=== PATIENT | male | born 1955 | race Caucasian/White ===

== ENCOUNTER 2020-04-06 07:00 | Outpatient (CLI) | payer OTHER, SELFPAY ==
--- NOTE | ~2020-04-06 | US_ITS ---
EXAMINATION: US aorta [facility] DATE: 04/06/2020 07:47 INDICATION: Encounter for screening for cardiovascular disorders, AAA screening, current smoker, hype rtension TECHNIQUE: Grayscale, color Doppler, and pulsed Doppler images of the aorta and common iliac arteries were obtained. COMPARISON: None. FINDINGS: Maximum vascular dimensions are as follows: Proximal aorta: 2.7 cm Mid aorta: 2.5 cm Distal aorta: 1.8 cm Right common iliac artery: 1.1 cm Left common iliac artery: 1.0 cm There is no evidence of abdominal aortic aneurysm. IMPRESSION: 1. No sonographic evidence of abdominal aortic aneurysm. Reviewed, dictated and finalized at location A. 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
--- NOTE | ~2020-04-06 | CT_ITS ---
EXAMINATION: CT lung screening EXAM DATE: 04/06/2020 07:37 INDICATION: Z12.2 - Encounter for screening for malignant neoplasm of respiratory organs. Personal hi story of nicotine dependence. TECHNIQUE: Spiral low dose CT of the chest without contrast. Axial, coronal and sagittal images were reviewed. The dose-length product (DLP) for this examination was 119.02 mGy-cm. The exposure was t ailored according to patient size (auto mA exposure control), and iterative reconstruction (ASIR) was used as additional dose reduction technique. Comparison is made to prior examination from 03/05/2007 . FINDINGS: There is 4 mm right upper lobe subsolid density nodule on axial image 29. There are other scattered smaller pulmonary nodules in the upper lobes. Mild diffuse bronchial wall thickening, could indicate chronic bronchitis. There is mild to moderate emphysema and moderate to severe hyperinflati on. Tracheobronchial tree is patent. There is no mediastinal, hilar or axillary lymphadenopathy. There are no pleural or pericardial effusions. There is no pneumothorax. Heart normal in size. There is moderate coronary arterial calcification, arterial sclerosis. There is 8 mm right superior calyceal stone. There is small sliding gastroesophageal hiatal hernia. There is thoracic spondylosi s without osteoblastic or osteolytic lesions identified. IMPRESSION: Lung-RADS category 2, benign appearance or behavior (<1% chance of malignancy); recommend continued LDCT screening in 1 year. Reviewed, dictated and finalized at location B. 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
== END 2020-04-06 07:01 | disposition home or self-care (01) ==
LOC: ANHIMG 07:06
PROVIDERS: PCP Family Medicine; Visit Provider Family Medicine
DX: Z12.2 Encounter for screening for malignant neoplasm of respiratory organs (principal); Z87.891 Personal history of nicotine dependence; Z13.6 Encounter for screening for cardiovascular disorders
CPT/HCPCS: 71271; 76706

== ENCOUNTER 2020-07-24 12:25 | Outpatient (CLI) | payer OTHER, SELFPAY ==
--- NOTE | ~2020-07-24 | XR_ITS ---
XR chest 2V DATE: 07/24/2020 12:46 INDICATION: Prostate cancer. No chest complaints. TECHNIQUE: PA and lateral views COMPARISON: 09/21/2018 2 view chest 04/06/2020 CT lung screening FINDINGS: Normal heart size. No hilar or mediastinal enlargement. Bilateral hyperinflation consistent with COPD. No pulmonary infiltrate or consolidation, pleural effusion or pulmonary vascular congestion or pneumo thorax. Diffuse osteopenia. Dextroscoliosis of the thoracic spine. IMPRESSION: Bilateral hyperinflation consistent with COPD No active cardiopulmonary disease Reviewed, dictated and finalized at location A.
--- NOTE | ~2020-07-24 | CT_ITS ---
EXAMINATION: CT abdomen pelvis w con INDICATION: Prostate cancer TECHNIQUE: Computed tomographic images of the abdomen and pelvis were obtained after the administrati on of 100 cc of Omnipaque 350 intravenous contrast. The dose-length product (DLP) was 540.61 mGy-cm. Automated exposure control and iterative reconstruction technique were employed. COMPARISON: None available FINDINGS: There is mild atelectasis of the lingula. The heart size is normal. Punctate calcifications in an otherwise normal spleen likely represent healed granulomatous disease. The liver, pancreas, ga llbladder, and adrenal glands are normal. There is a 7 mm nonobstructing stone of the right kidney. T here is a 10 mm cyst of the left kidney. A 5 mm nonobstructing stone is present in the lower pole of the left kidney. No pathologically enlarged abdominal or pelvic lymph nodes are identified. There is no free intraperitoneal gas or evidence of bowel obstruction. The appendix is normal. There is a smal l umbilical hernia containing fat. There are bilateral pars defects at L5 with grade 1 anterolisthesi s of L5 on S1. IMPRESSION: 1. No evidence of metastatic disease. Reviewed, dictated and finalized at location A.
[2020-07-25 01:39] LABS: Estimated Glomerular Filt Rate > 60
== END 2020-07-24 12:26 | disposition home or self-care (01) ==
PROVIDERS: PCP Family Medicine; Visit Provider Urology
DX: C61 Malignant neoplasm of prostate (principal); R91.8 Other nonspecific abnormal finding of lung field
CPT/HCPCS: 71046; 74177; Q9967

== ENCOUNTER 2020-10-14 12:43 | Outpatient (CLI) | payer OTHER, SELFPAY ==
--- NOTE | ~2020-10-14 | MR_ITS ---
EXAMINATION: MR pelvis wo/w con INDICATION: Prostate cancer TECHNIQUE: 3D Axial T2 Cube, Axial 2D FIESTA, Coronal SSFSE ARC, Axial and Coronal 2D FIESTA FatSat, Axial T2 FS, Axial SSFSE BH ARC, Axial 3D DualEcho BH, Axial SSFSE-IR Alex, Axial DWI b=600, pre and d ynamic postcontrast Axial LAVA ARC, WATER:POST Cor LAVA-FLEX COMPARISON: CT, 07/24/2020 CONTRAST: Multihance, 15 cc FINDINGS: There are foci of T1 signal hyperintensity in the peripheral zone of the prostate on unenha nced images, likely related to biopsy. Spacer material is noted between the rectum and the prostate. No pathologically enlarged pelvic lymph nodes are identified. There are no dilated loops of bowel. Mi ld trabecular thickening of the urinary bladder wall is likely due to chronic outlet obstruction. The re is a fat-containing umbilical hernia. There are bilateral L5 pars defects with grade 1 anterolisth esis of L5 on S1. IMPRESSION: 1. Biopsy changes of the prostate without evidence of metastatic disease. Reviewed, dictated and finalized at location B.
[2020-10-14 13:19] LABS: Estimated Glomerular Filt Rate > 60
== END 2020-10-14 12:44 | disposition home or self-care (01) ==
LOC: ANHIMG 12:44
PROVIDERS: PCP Family Medicine; Visit Provider Radiology Radiation Oncology
DX: C61 Malignant neoplasm of prostate (principal); K42.9 Umbilical hernia without obstruction or gangrene
CPT/HCPCS: 72197; A9577

== ENCOUNTER 2022-02-13 00:09 | Day surgery (SDC) | payer MEDICARE, SELFPAY ==
[2022-01-31 13:18] VITALS: BMI 28.2
--- NOTE | 2022-02-03 13:32 | PM.HPGS ---
History of Present Illness History of Present Illness Consent: Risks, benefits, and alternatives have been discussed and questions answered. Patient agrees to proceed with procedure. Chief complaint: neoplasm screening Narrative: Rosendo Gómez is a 66 year old male referred for colon cancer screening. Review of Systems Review of Systems: All systems reviewed & are unremarkable except as noted in HPI and below PMFSH Past Medical History Medical History Alcoholism Anxiety Chronic obstructive pulmonary disease (~2018) Essential (primary) hypertension Family history of early CAD GERD without esophagitis Prostate cancer Tobacco abuse Vitamin D deficiency (~2010) Surgical History Surgical History History of tooth extraction Family History Family History Mother Acute myocardial infarction, Onset Age: 72 Patient's mother is Father Malignant neoplasm of prostate, Onset Age: 87 Grandparent Malignant neoplasm of prostate Social History Social History Smoking packs per day: 1 Smoking cigarettes per day: 20.0 Years smoked: 54 Smoking pack-years: 54.00 Smoking status: Current every day smoker Tobacco type: cigarettes Second hand tobacco smoke exposure: Yes Alcohol intake: never Drinks per week: 21 Alcohol use details: beer Substance use: never Substance use type: does not use Living arrangements: alone Gender identity (if verbalized by the patient): Male Spiritual care concerns: No Meds Home Medications and Allergies Home Medications Medication Instructions Recorded Confirmed Type aspirin 81 mg tablet,delayed 81 mg PO DAILY 04/30/19 02/13/22 History release albuterol sulfate 90 mcg/actuation 2 puff inhalation Q4H PRN 10/20/21 02/13/22 Rx aerosol inhaler shortness of breath or wheezing #8.5 grams duloxetine 60 mg capsule,delayed 60 mg PO DAILY #90 caps 12/06/21 02/13/22 Rx release omeprazole 20 mg capsule,delayed 20 mg PO DAILY #90 caps 12/14/21 02/13/22 Rx release lisinopril 20 mg tablet 20 mg PO DAILY #90 tabs 01/16/22 02/13/22 Rx fluticasone 250 mcg-salmeterol 50 1 inh inhalation BID #180 ea 01/23/22 02/13/22 Rx mcg/dose blistr powdr for inhalation (Advair Diskus) tadalafil 20 mg tablet 20 mg PO DAILY PRN sexual activity 01/23/22 02/13/22 Rx #30 tabs Allergies Allergy/AdvReac Type Severity Reaction Status Date / Time No Known Allergies Allergy Verified 12/14/21 11:19 Exam Resp: Auscultation: clear to auscultation bilaterally Cardio: Rate: regular rate Rhythm: regular rhythm GI: GI Palp: Yes Soft to palpation and No Tenderness to palpation present (GI) Assessment and Plan Assessment and plan (1) Colon cancer screening: Code(s): Z12.11 - Encounter for screening for malignant neoplasm of colon Status: Acute Assessment and Plan: Colonoscopy with possible biopsy or polypectomy or cautery or injection of substances.
[2022-02-13 06:57] VITALS: BP 155/83; PULSE 93; RESP 18; TEMP 36.6; O2SAT 100
[2022-02-13] MEDS: LACTATED RINGERS 1,000 ML 150 ML IV CONT (06:59)
--- NOTE | 2022-02-13 07:48 | WPDANESEPPF ---
Anes - Initial Pre Proc Eval Procedure: Operation Date: 02/13/22 08:15 Proposed Procedures p Screening Colonoscopy - Cesar Hodgson MD Date/Time: 02/13/22 07:48 Surgeon: Cesar Hodgson MD Pre Op Diagnosis: neoplasm screening Patient Data Age: 66 Gender: M Height: 1.73 m Weight: 86.7 kg Last Vital Signs Temp 97.8 F 02/13/22 06:57 Pulse 93 02/13/22 06:57 Resp 18 02/13/22 06:57 BP 155/83 H 02/13/22 06:57 Pulse Ox 100 02/13/22 06:57 O2 Del Method Room Air 02/13/22 06:57 Allergies Allergy/AdvReac Type Severity Reaction Status Date / Time No Known Allergies Allergy Verified 12/14/21 11:19 Home Medications Medication Instructions Recorded Confirmed Type aspirin 81 mg tablet,delayed 81 mg PO DAILY 04/30/19 02/13/22 History release albuterol sulfate 90 mcg/actuation 2 puff inhalation Q4H PRN 10/20/21 02/13/22 Rx aerosol inhaler shortness of breath or wheezing #8.5 grams duloxetine 60 mg capsule,delayed 60 mg PO DAILY #90 caps 12/06/21 02/13/22 Rx release omeprazole 20 mg capsule,delayed 20 mg PO DAILY #90 caps 12/14/21 02/13/22 Rx release lisinopril 20 mg tablet 20 mg PO DAILY #90 tabs 01/16/22 02/13/22 Rx fluticasone 250 mcg-salmeterol 50 1 inh inhalation BID #180 ea 01/23/22 02/13/22 Rx mcg/dose blistr powdr for inhalation (Advair Diskus) tadalafil 20 mg tablet 20 mg PO DAILY PRN sexual activity 01/23/22 02/13/22 Rx #30 tabs Patient hx anesthesia problems: none Family hx anesthesia problems: none Results Review: All pre-operative results and documents have been reviewed as part of the pre-operative evaluation. [facility] Past Medical History Medical History Alcoholism Anxiety Chronic obstructive pulmonary disease (~2018) Essential (primary) hypertension Family history of early CAD GERD without esophagitis Prostate cancer Tobacco abuse Vitamin D deficiency (~2010) Surgical History Surgical History History of tooth extraction Family History Family History Mother Acute myocardial infarction, Onset Age: 72 Patient's mother is Father Malignant neoplasm of prostate, Onset Age: 87 Grandparent Malignant neoplasm of prostate Social History Social History Smoking packs per day: 1 Smoking cigarettes per day: 20.0 Years smoked: 54 Smoking pack-years: 54.00 Smoking status: Current every day smoker Tobacco type: cigarettes Second hand tobacco smoke exposure: Yes Alcohol intake: never Drinks per week: 21 Alcohol use details: beer Substance use: never Substance use type: does not use Living arrangements: alone Gender identity (if verbalized by the patient): Male Spiritual care concerns: No Anes - Eval Final PreProcedure Day of Procedure 02/13/22 07:48 Patient weight: normal Heart: regular rate and rhythm Lungs: clear to auscultation Airway: Mallampati scale class II Neurological: alert and oriented Last oral intake: >/= 8 hours ASA classification: III Emergent: no Anesthetic plan: proceed Anesthesia type and monitoring: general GIVS and standard monitoring Results Review: All pre-operative results and documents have been reviewed as part of the pre-operative evaluation. Informed Consent: The patient's anesthetic plan and its attendant risks and benefits were discussed with the patient/family/POA. Questions were solicited and answers provided to the satisfaction of the patient/family/POA.
[2022-02-13 08:36] VITALS: BP 123/75; PULSE 62; RESP 23; O2SAT 98
[2022-02-13 08:46] VITALS: BP 110/67; PULSE 76; RESP 24; O2SAT 99
[2022-02-13 08:56] VITALS: BP 126/85; PULSE 60; RESP 23; O2SAT 100
== END 2022-02-13 09:06 | disposition home or self-care (01) ==
PROVIDERS: PCP Family Medicine; Visit Provider Internal Medicine Gastroenterology
PROC: 0DJD8ZZ Inspection of Lower Intestinal Tract, Via Natural or Artificial Opening Endoscopic (ICD-10-PCS; CPT 45378; principal; 2022-02-13 08:15)
DX: Z12.11 Encounter for screening for malignant neoplasm of colon (principal); K64.8 Other hemorrhoids; K57.30 Diverticulosis of large intestine without perforation or abscess without bleeding; D12.4 Benign neoplasm of descending colon; D12.0 Benign neoplasm of cecum; K62.1 Rectal polyp; J44.9 Chronic obstructive pulmonary disease, unspecified; K21.9 Gastro-esophageal reflux disease without esophagitis; F41.9 Anxiety disorder, unspecified; Z85.46 Personal history of malignant neoplasm of prostate; F17.210 Nicotine dependence, cigarettes, uncomplicated; Z79.82 Long term (current) use of aspirin; Z79.51 Long term (current) use of inhaled steroids
CPT/HCPCS: 45381; 45385; 45380; 88305; J2704; J7120

== ENCOUNTER 2022-08-07 08:16 | Outpatient (CLI) | payer MEDICARE, SELFPAY ==
--- NOTE | ~2022-08-07 | CT_ITS ---
EXAMINATION: CT lung screening DATE: 08/07/2022 08:39 INDICATION: Personal history of nicotine dependence TECHNIQUE: Computed tomography (CT) of the chest was performed without intravenous contrast. The dose -length product was 206.52 mGy-cm. Automated exposure control and iterative reconstruction technique were employed. COMPARISON: CT dated 04/06/2020 FINDINGS: There is evidence for chronic granulomatous disease. No thoracic lymphadenopathy. Heart siz e normal. No significant pleural or pericardial effusion. There is an 5 mm nonobstructing right renal stone. There is emphysema. There are small bilateral upper lobe nodules, largest measuring 3 mm or l ess. There is chronic lingular atelectasis/scarring. Mild thoracic spondylosis. There is atherosclero sis of the coronary arteries. IMPRESSION: 1. Lung-RADS category 2: Benign appearance or behavior. Continue annual screening with noncontrast lo w-dose chest CT in 12 months. Reviewed, dictated and finalized at location B. IMPRESSION: 1. Lung-RADS category 2: Benign appearance or behavior. Continue annual screeni ng with noncontrast low-dose chest CT in 12 months.
== END 2022-08-07 08:17 | disposition home or self-care (01) ==
PROVIDERS: PCP Family Medicine; Visit Provider Family Medicine
DX: Z12.2 Encounter for screening for malignant neoplasm of respiratory organs (principal); F17.210 Nicotine dependence, cigarettes, uncomplicated
CPT/HCPCS: 71271

== ENCOUNTER 2024-02-16 18:30 | Emergency (ER) | payer MEDICARE, SELFPAY ==
[2024-02-16 18:35] VITALS: BP 122/82; PULSE 77; RESP 18; TEMP 37.7; O2SAT 97
--- NOTE | 2024-02-16 18:53 | ED_ITS ---
HPI - Eye Problem General Chief complaint: Eye Problems Stated complaint: Left Eye Irritation Time Seen by Provider: 02/16/24 18:42 Source: patient and RN notes reviewed Mode of arrival: ambulatory Limitations: no limitations History of Present Illness HPI Narrative: Patient presents today complaining of swelling and redness to the left upper eyelid x2 days. Denies foreign body sensation, drainage, vision changes. No [id number] treatment prior to arrival. Related Data Home Medications Medication Instructions Recorded Confirmed aspirin 81 mg tablet,delayed 81 mg PO DAILY 04/30/19 02/16/24 release terbinafine HCl 250 mg tablet 250 mg PO DAILY 01/01/23 02/16/24 oxybutynin chloride 5 mg 5 mg PO DAILY 02/14/24 02/16/24 tablet,extended release 24 hr Allergies Allergy/AdvReac Type Severity Reaction Status Date / Time No Known Allergies Allergy Verified 02/16/24 18:32 Review of Systems Review of Systems: CONSTITUTIONAL: Denies body aches, fever, chills, or sweats. EYES: Denies visual changes, redness, or discharge. + left upper eyelid swelling ENT: Denies rhinorrhea, congestion, sore throat, or otalgia. CARDIOVASCULAR: Denies chest pain, palpitations, or edema. RESPIRATORY: Denies cough or dyspnea. GASTROINTESTINAL: Denies abdominal pain, nausea, vomiting, or diarrhea. GENITOURINARY: Denies dysuria or hematuria. SKIN: Denies rash, itching, or wounds. MUSCULOSKELETAL: Denies back pain, joint pain, or myalgia. NEUROLOGIC: Denies headache, numbness, tingling, or weakness. PSYCH: Denies depression or anxiety. [facility] Past Medical History Medical History Alcoholism Anxiety Chronic obstructive pulmonary disease (~2018) Essential (primary) hypertension Family history of early CAD GERD without esophagitis Iron deficiency Onychomycosis of toenail Prostate cancer Tobacco abuse Vitamin B12 deficiency Vitamin D deficiency (~2010) Surgical History Surgical History History of tooth extraction Family History Family History Mother Acute myocardial infarction, Onset Age: 72 Patient's mother is Father Malignant neoplasm of prostate, Onset Age: 87 Grandparent Malignant neoplasm of prostate Social History Social History Smoking packs per day: 1 Smoking cigarettes per day: 20.0 Years smoked: 54 Smoking pack-years: 54.00 Smoking status: Current every day smoker Tobacco type: cigarettes Second hand tobacco smoke exposure: Yes Alcohol intake: never Drinks per week: 21 Alcohol use details: beer Substance use: never Substance use type: does not use Living arrangements: alone Occupation/Education: occupation Gender identity (if verbalized by the patient): Male Spiritual care concerns: No Comments At time of signature, I have reviewed and agree with nursing past medical, surgical, social and family history unless otherwise noted. Please see nursing chart for further information. There is no relevant family history pertinent to the presenting complaint Exam Narrative: GENERAL: Well-appearing, well-nourished, and in no acute distress. HEAD: Normocephalic, atraumatic. EYES: EOMI. PERRL. Right eye normal. Left eye: Normal conjunctiva. Upper eyelid is mildly swollen and erythematous. Eyelashes are matted and base of lashes are covered in a crusting green discharge. Lower lashes normal. ENT: Mucous membranes pink and moist. NECK: Normal AROM. Supple. CHEST: No respiratory distress. EXTREMITIES: Normal range of motion. No edema. SKIN: Warm, dry, no rash. Capillary refill normal. Normal skin turgor. NEURO: No focal deficits. Alert and oriented x3. Gait steady. PSYCH: Normal affect. No signs of depression or anxiety. Course Course Level of Care: Express Care Visit Vital Signs Vital signs: Vital Signs Temperature 99.8 F H 02/16/24 18:35 Pulse Rate 77 02/16/24 18:35 Respiratory Rate 18 02/16/24 18:35 Blood Pressure 122/82 02/16/24 18:35 Pulse Oximetry 97 02/16/24 18:35 Oxygen Delivery Room Air 02/16/24 18:35 Temperature 99.8 F H 02/16/24 18:35 Pulse Rate 77 02/16/24 18:35 Respiratory Rate 18 02/16/24 18:35 Blood Pressure 122/82 02/16/24 18:35 Pulse Oximetry 97 02/16/24 18:35 Oxygen Delivery Room Air 02/16/24 18:35 Reviewed MDM - Eye Problem MDM Narrative Medical decision making narrative: Patient has been diagnosed with blepharitis in the left upper eyelid area. Recommend cleaning with baby shampoo and applying some erythromycin ointment. Patient agrees with plan. Anticipatory guidance given. Differential Diagnosis Differential diagnosis: Likely corneal abrasion, conjunctivitis, periorbital cellulitis and other (Stye, blepharitis) Critical Care Time Critical Care Time Critical Care Time: No Discharge Plan Discharge Clinical Impression: Blepharitis Patient Disposition: Home, Self-Care Condition: Stable Instructions: Antibiotic Form, Blepharitis (ED) Additional Instructions: You have developed an infection along your eye lash line. Please wash your eyelid with warm water and baby shampoo twice daily while massaging your eyelid. Use the antibiotic ointment twice daily as well. Follow-up with your PCP or an eye doctor in 3-4 days if symptoms are not improving. Your blood pressure was elevated above 120/80 today at Urgent Care. This puts you above the threshold for follow up. Please schedule a followup visit with your personal physician as soon as possible, for further evaluation and treatment. Even blood pressure exceeding 120/80 may indicate pre-hypertension. Prescriptions: New erythromycin 5 mg/gram (0.5 %) ointment 1 applic EACH EYE BID Qty: 7 0RF No Action terbinafine HCl 250 mg tablet 250 mg PO DAILY oxybutynin chloride 5 mg tablet extended release 24hr 5 mg PO DAILY aspirin 81 mg tablet,delayed release (DR/EC) 81 mg PO DAILY meloxicam 15 mg tablet 15 mg PO DAILY Qty: 10 0RF cyanocobalamin (vitamin B-12) 1,000 mcg tablet, sublingual 1,000 mcg sublingual DAILY Qty: 90 1RF ferrous sulfate 325 mg (65 mg iron) tablet,delayed release (DR/EC) 325 mg PO DAILY Qty: 90 2RF fluticasone propion-salmeterol [Advair Diskus] 250-50 mcg/dose blister with device 1 inh inhalation BID Qty: 180 1RF tadalafil 20 mg tablet 20 mg PO DAILY PRN (Reason: sexual activity) Qty: 30 0RF Rx Instructions: administer approximately 30min before sexual activity; do not use more than 1 dose per 24hrs albuterol sulfate 90 mcg/actuation HFA aerosol inhaler 2 puff inhalation Q4H PRN (Reason: shortness of breath or wheezing) Qty: 8.5 5RF duloxetine 60 mg capsule,delayed release(DR/EC) 60 mg PO DAILY Qty: 90 1RF omeprazole 20 mg capsule,delayed release(DR/EC) 20 mg PO DAILY Qty: 90 1RF lisinopril 20 mg tablet 20 mg PO DAILY Qty: 90 1RF tamsulosin 0.4 mg capsule 0.4 mg PO DAILY Qty: 90 1RF Follow-up/Referrals: Karena Simon MD [Primary Care Provider] - Time of Disposition: 18:56
== END 2024-02-16 19:00 | disposition home or self-care (01) ==
PROVIDERS: Emergency Provider Nurse Practitioner; PCP Family Medicine
DX: H01.004 Unspecified blepharitis left upper eyelid (principal); F17.210 Nicotine dependence, cigarettes, uncomplicated; J44.9 Chronic obstructive pulmonary disease, unspecified; I10 Essential (primary) hypertension; K21.9 Gastro-esophageal reflux disease without esophagitis; Z85.46 Personal history of malignant neoplasm of prostate; Z79.82 Long term (current) use of aspirin
CPT/HCPCS: 99213; G0463

== ENCOUNTER 2025-02-09 06:45 | Outpatient (CLI) | payer MEDICARE, SELFPAY ==
--- NOTE | ~2025-02-09 | CT_ITS ---
EXAMINATION:CT lung screening DATE: 02/09/2025 07:08 INDICATION: Screening TECHNIQUE: Computed tomography (CT) of the chest was performed without intravenous contrast. The dose-length product (DLP) was 168.31 mGy-cm. COMPARISON: August 07, 2022 FINDINGS: No suspicious lung nodules or masses. Scattered calcified granulomas nodules noted. Heart and great vessels appear stable; extensive coronary artery calcification and/or stenting. Trace pericardial effusion. No bulky lymphadenopathy. Central large airways unchanged in appearance with saber-sheath shape of the trachea and emphysematous changes throughout the lungs. No acute process seen in the visualized portions of the upper abdomen except thoracic soft tissues or bony thorax. Extensive granulomata in the spleen, and nephrolithiasis as well as small to moderate-sized hiatal hernia noted. IMPRESSION: 1. No suspicious lung nodules. LUNG RADS 2. Recommend follow-up low-dose lung cancer screening chest CT in 12 months. 2. Several chronic appearing findings as above. Reviewed, dictated and finalized at location A. 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 No suspicious lung nodules. LUNG RADS 2. Recommend follow-up low-dose lung c ancer screening chest CT in 12 months. 2. Several chronic appearing findings as above.
== END 2025-02-09 06:46 | disposition home or self-care (01) ==
PROVIDERS: PCP Family Medicine; Visit Provider Nurse Practitioner Family
DX: Z12.2 Encounter for screening for malignant neoplasm of respiratory organs (principal); F17.210 Nicotine dependence, cigarettes, uncomplicated; R91.8 Other nonspecific abnormal finding of lung field; K44.9 Diaphragmatic hernia without obstruction or gangrene
CPT/HCPCS: 71271

== ENCOUNTER 2025-03-16 10:36 | Outpatient (CLI) | payer MEDICARE, SELFPAY ==
--- NOTE | 2025-03-16 14:42 | WPDSIXMINUTE ---
Six Minute Walk Procedure Procedure Performed Pulmonary Stress Test (6 min walk) Six Minute Walk Six Minute Walk: This is a 6 minute walk test. The test was performed and interpreted in accordance with the 2014 ERS/ATS task force guidelines. Findings: The patient's resting room air oxygen saturation measured by pulse oximetry was 95%, the heart rate was 72 bpm, and the modified Augustina dyspnea score was 0. Patient ambulated for 152 meters and oxygen saturation remained 92 to 93%. At the end of the study the heart rate was 89 bpm and the modified Augustina dyspnea score was 0. The patient did not qualify for supplemental oxygen at rest or with ambulation. There are no prior studies for comparison.
--- NOTE | 2025-03-16 14:43 | WPDPFTINT ---
PFT Procedure Performed PFT Procedure Performed Spirometry with Pre/Post Bronchodilator Plethysmography (Lung Vol) Diffusing Cap (DLCO) Flow Vol Loop PFT Interpretation This is a pulmonary function test with pre and post-bronchodilator spirometry, plethysmography and diffusing capacity. The test was performed and results interpreted in accordance with the 2019 and 2005 ATS/ERS Task Force guidelines respectively using the Global Lung Function Initiative-2012 reference equations. Patient demonstrated good effort and cooperation. Reproducibility criteria were met. The quality of the pre bronchodilator spirometry maneuver was Grade A and post bronchodilator spirometry maneuver was Grade A. Findings: Spirometry: The contour the expiratory flow tracing is sawtooth in 2 of 3 pre bronchodilator maneuvers. The contour the expiratory flow tracing is notched in 2 of 3 pre bronchodilator maneuvers and 3 of 3 post bronchodilator maneuvers. There is decreased maximal expiratory airflow at all lung volumes with concave expiratory flow tracing. The contour the inspiratory flow tracing is normal. The pre bronchodilator FVC is 2.92 L, 72% predicted. The pre bronchodilator FEV1 is 1.51 L, 49% predicted. The pre bronchodilator FEV1: FVC ratio is 52%. The post bronchodilator FVC is 3.48 L, representing a 19% increase. The post bronchodilator FEV1 is 1.64 L, representing a 9% increase. The post bronchodilator FEV1: FVC ratio is 47%. Plethysmography: The total lung capacity 7.51 L, 110% predicted. The functional residual capacity is 5.54 L, 153% predicted. The residual volume is 4.59 L, 191% predicted. The residual volume: Total lung capacity ratio is 61%. Diffusing capacity: The diffusing capacity unadjusted for hemoglobin and carboxyhemoglobin is 14.0, 55% predicted. The diffusing capacity adjusted for alveolar volume is 2.78, 70% predicted. In comparison to previous pulmonary function testing on 11/28/2018, the post bronchodilator FVC is increased from 3.04 L to 3.48 L. The post bronchodilator FEV1 is increased from 1.39 L to 1.64 L. The total lung capacity is unchanged from 8.28 L to 7.51 L. The functional residual capacity is decreased from 6.73 L to 5.54 L. The residual volume is decreased from 5.46 L to 4.59 L. The residual volume: Total lung capacity ratio is unchanged from 66% to 61%. The diffusing capacity unadjusted for hemoglobin and carboxyhemoglobin is unchanged from 16.2 to 14.0. The diffusing capacity adjusted for alveolar volume is decreased from 3.40 to 2.78. Impression: The notched expirpatory flow pattern has been described with coughing or tracheobronchomalacia. The contour the expiratory flow tracing demonstrates a reproducible oscillating or sawtooth pattern. This is usually generated by air flow disturbances in the upper airway are from tremors of the respiratory muscles. This has been associated with sleep apnea, obesity, snorers without obstructive sleep apnea, upper airway injury, upper airway stenosis, tracheobronchomalacia, neuromuscular disorders with bulbar involvement, burn injury of the upper airway, diaphragmatic myoclonus, and herpes zoster of abdominal muscles. Clinical correlation is recommended. Otherwise, there is a severe obstructive abnormality. There is significant improvement after inhaling a single dose of albuterol. The increase in residual volume to total lung volume ratio is consistent with hyperinflation from an obstructive abnormality. The diffusing capacity unadjusted for hemoglobin and carboxyhemoglobin is moderately decreased and remains mildly decreased when adjusted for alveolar volume. In comparison to previous pulmonary function testing on 11/28/2018, there has been a greater than anticipated time dependent increase in the FVC and FEV1. There has been a greater than anticipated time dependent decrease in the functional residual capacity, residual volume and diffusing capacity adjusted for alveolar volume with no significant change in the total lung capacity, residual volume: Total lung capacity ratio, and the diffusing capacity unadjusted for hemoglobin and carboxyhemoglobin. Clinical correlation is recommended.
== END 2025-03-16 10:37 | disposition home or self-care (01) ==
LOC: ANHPFT 10:38
PROVIDERS: PCP Nurse Practitioner Family; Visit Provider Nurse Practitioner Family
DX: J44.9 Chronic obstructive pulmonary disease, unspecified (principal); R94.2 Abnormal results of pulmonary function studies
CPT/HCPCS: 94060; 94618; 94726; 94729